=== PATIENT | female | born 1970 | race African-American/Black ===

== ENCOUNTER 2016-08-13 16:42 | Emergency (ER) | payer OTHER ==
[~2016-08-13] VITALS: Ht 149.9 cm; Wt 60.8 kg
[~2016-08-13 16:42] MED LIST: ASPI-498 PO; HYDR7.5T PO
[2016-08-13 17:24] LABS: Basophils # (auto) 0 uL; Basophils % (auto) 0.2 % (0.0-2.0); Eosinophils # (auto) 0 uL; Eosinophils % (auto) 0.6 % (0.0-7.0); Hematocrit 40.9 % (36.0-46.0); Hemoglobin 13.4 g/dL (12.2-16.2); Lymphocytes # (auto) 2.7 uL; Lymphocytes % (auto) 45.7 % (10.0-50.0); Mean Corpuscular Hemoglobin 28.8 pg (28.0-32.0); Mean Corpuscular Hgb Conc. 32.7 g/dL (32.0-36.0); Mean Corpuscular Volume 87.9 fL (80.0-100.0); Mean Platelet Volume 9.5 fL (7.4-10.4); Monocytes # (auto) 0.2 uL; Monocytes % (auto) 4.2 % (0.0-12.0); Neutrophils # (auto) 2.9 uL; Neutrophils % (auto) 49.3 % (37.0-80.0); Platelet Count (auto) 225 10^3/uL (140-450); Red Cell Distribution Width 13.2 % (11.6-16.0); White Blood Cell 5.8 10^3/uL (4.4-10.8)
[2016-08-13 17:36] LABS: Albumin 4.1 g/dL (3.4-5.0); Alkaline Phosphatase 111 U/L (45-117); Anion Gap 9 (5-15); Aspartate Aminotransferase 11 U/L (15-37); BUN/Creatinine Ratio 9.5; Bilirubin, Total 0.3 mg/dL (0.2-1.0); Blood Urea Nitrogen 7 mg/dL (7-18); Calcium 9.2 mg/dL (8.5-10.1); Carbon Dioxide 31 mmol/L (21-32); Chloride 105 mmol/L (98-107); GFR African American 110 mL/min; GFR Non-African American 91 mL/min; Glucose 109 mg/dL (74-106); Magnesium 2.3 mg/dL (1.6-2.6); Potassium 3.4 mmol/L (3.5-5.1); Sodium 145 mmol/L (136-145); Total Protein 7.5 g/dL (6.4-8.2)
[2016-08-13 17:58] LABS: INR 1.02 (0.9-1.15); Partial Thromboplastin Time 28.2 sec (22.64-33.71)
[2016-08-14] MEDS ORDERED: ONDANSETRON HCL 4 MG/2 ML VIAL IV ONE (04:45)
[2016-08-14] MEDS ORDERED: MORPHINE SULF INJ 2 MG/ML SYRINGE 1ML IV ONE ×2 (04:45→06:30)
[2016-08-14 08:55] VITALS: BP 116/69
== END 2016-08-14 08:26 | disposition home or self-care (01) ==
LOC: ER 16:48
DX: R07.89 Other chest pain (principal); J06.9 Acute upper respiratory infection, unspecified; J45.909 Unspecified asthma, uncomplicated; I10 Essential (primary) hypertension; E78.5 Hyperlipidemia, unspecified; Z90.710 Acquired absence of both cervix and uterus; Z98.51 Tubal ligation status
CPT/HCPCS: 36415; 71020; 80053; 83735; 84443; 84484; 85025; 85610; 85730; 93005; 96374; 96375; 96376; 99285; J2270; J2405

== ENCOUNTER → 2017-02-01 | Outpatient (CLI) | payer OTHER ==
[2017-02-01 08:59] LABS: Basophils # (auto) 0 uL; Basophils % (auto) 0.5 % (0.0-2.0); Eosinophils # (auto) 0 uL; Hematocrit 38.4 % (36.0-46.0); Hemoglobin 12.8 g/dL (12.2-16.2); Lymphocytes # (auto) 1.8 uL; Lymphocytes % (auto) 45.8 % (10.0-50.0); Mean Corpuscular Hemoglobin 29.9 pg (28.0-32.0); Mean Corpuscular Hgb Conc. 33.2 g/dL (32.0-36.0); Mean Platelet Volume 9.4 fL (6.9-10.8); Monocytes # (auto) 0.2 uL; Monocytes % (auto) 5.7 % (0.0-12.0); Neutrophils # (auto) 1.8 uL; Nucleated Red Blood Cells % 0.1 %; Platelet Count (auto) 165 10^3/uL (140-450); Red Cell Distribution Width 13.2 % (11.8-14.3); White Blood Cell 3.8 10^3/uL (4.4-10.8)
[2017-02-01 09:14] LABS: Albumin 4.1 g/dL (3.4-5.0); BUN/Creatinine Ratio 19.4; Bilirubin, Total 0.4 mg/dL (0.2-1.0); Calcium 8.9 mg/dL (8.5-10.1); Potassium 3.4 mmol/L (3.5-5.1); Total Protein 7.1 g/dL (6.4-8.2); Uric Acid 3.5 mg/dL (2.6-6.0)
[2017-02-02 08:07] LABS: Rheumatoid Arthritis Factor <10.0 IU/mL (0.0-13.9)
== END | disposition home or self-care (01) ==
LOC: LAB 08:08
DX: I10 Essential (primary) hypertension (principal); M45.0 Ankylosing spondylitis of multiple sites in spine; M32.10 Systemic lupus erythematosus, organ or system involvement unspecified; M10.00 Idiopathic gout, unspecified site; M06.9 Rheumatoid arthritis, unspecified; M25.50 Pain in unspecified joint; D64.9 Anemia, unspecified; Z79.899 Other long term (current) drug therapy
CPT/HCPCS: 36415; 80053; 84550; 85025; 85652; 86038; 86141; 86200; 86431; 86812

== ENCOUNTER → 2017-07-27 | Outpatient (CLI) | payer OTHER ==
[2017-07-27 14:33] LABS: Basophils # (auto) 0 uL; Basophils % (auto) 0.5 % (0.0-2.0); Eosinophils # (auto) 0 uL; Eosinophils % (auto) 0.6 % (0.0-7.0); Hematocrit 39.6 % (36.0-46.0); Hemoglobin 13.8 g/dL (12.2-16.2); Lymphocytes # (auto) 2.3 uL; Lymphocytes % (auto) 54.4 % (10.0-50.0); Mean Corpuscular Hemoglobin 30.6 pg (28.0-32.0); Mean Corpuscular Hgb Conc. 34.8 g/dL (32.0-36.0); Mean Corpuscular Volume 87.8 fL (80.0-100.0); Monocytes # (auto) 0.2 uL; Monocytes % (auto) 4.6 % (0.0-12.0); Neutrophils # (auto) 1.7 uL; Neutrophils % (auto) 39.9 % (37.0-80.0); Nucleated Red Blood Cells % 0.2 %; Platelet Count (auto) 185 10^3/uL (140-450); Red Cell Distribution Width 12.9 % (11.8-14.3); White Blood Cell 4.3 10^3/uL (4.4-10.8)
[2017-07-27 14:40] LABS: Protein, Urine 11.8 mg/dL (0.0-11.9)
[2017-07-27 14:50] LABS: Urine Bacteria FEW /hpf (None Seen); Urine Blood Negative /uL (Negative); Urine WBC 2 /hpf (0 - 5)
[2017-07-27 15:18] LABS: BUN/Creatinine Ratio 17.9; Bilirubin, Total 0.5 mg/dL (0.2-1.0); CRP High Sensitivity 0.05 mg/dL (< 0.3); Calcium 8.8 mg/dL (8.5-10.1); Potassium 3.6 mmol/L (3.5-5.1); Total Protein 7.3 g/dL (6.4-8.2)
[2017-07-27 15:20] LABS: Follicle Stimulating Hormone 147.31 IU/L (SEE BELOW); Free T4 (Free Thyroxine) 1.04 ng/dL (0.89-1.76)
== END | disposition home or self-care (01) ==
LOC: LAB 13:54
PROVIDERS: ATTEND Internal Medicine
DX: M06.9 Rheumatoid arthritis, unspecified (principal); M79.1 Myalgia; N95.1 Menopausal and female climacteric states; R13.10 Dysphagia, unspecified
CPT/HCPCS: 36415; 80053; 80061; 81001; 82550; 82570; 83001; 84156; 84439; 84443; 85025; 85652; 86141; 86235

== ENCOUNTER 2018-10-21 12:51 | Emergency (ER) | payer OTHER ==
[~2018-10-21] VITALS: Ht 152.4 cm; Wt 56.7 kg
[2018-10-21 14:09] LABS: Basophils # (auto) 0 uL; Basophils % (auto) 0.3 % (0.0-2.0); Eosinophils # (auto) 0 uL; Eosinophils % (auto) 0.1 % (0.0-7.0); Hematocrit 42.4 % (36.0-46.0); Hemoglobin 14.3 g/dL (12.2-16.2); Lymphocytes # (auto) 0.6 uL; Lymphocytes % (auto) 8.4 % (10.0-50.0); Mean Corpuscular Hgb Conc. 33.7 g/dL (32.0-36.0); Monocytes # (auto) 0.2 uL; Neutrophils # (auto) 6.4 uL; Neutrophils % (auto) 88.2 % (37.0-80.0); Nucleated Red Blood Cells % 0.1 %; Platelet Count (auto) 177 10^3/uL (140-450); Red Blood Cells 4.76 10^6/uL (4.0-5.20); Red Cell Distribution Width 12.6 % (11.8-14.3); White Blood Cell 7.3 10^3/uL (4.4-10.8)
[2018-10-21 14:25] LABS: Alanine Aminotransferase 62 U/L (13-56); Albumin 4.1 g/dL (3.4-5.0); Anion Gap 4 (5-15); Blood Urea Nitrogen 11 mg/dL (7-18); Carbon Dioxide 30 mmol/L (21-32); Chloride 107 mmol/L (98-107); Glucose 95 mg/dL (74-106); Magnesium 2.2 mg/dL (1.6-2.6); Potassium 3.7 mmol/L (3.5-5.1); Sodium 141 mmol/L (136-145)
[2018-10-21 14:30] LABS: Alkaline Phosphatase 150 U/L (45-117); Aspartate Aminotransferase 32 U/L (15-37); BUN/Creatinine Ratio 12.8; Bilirubin, Total 0.6 mg/dL (0.2-1.0); GFR African American 91 mL/min; GFR Non-African American 76 mL/min; Total Protein 7.7 g/dL (6.4-8.2)
[2018-10-21] MEDS ORDERED: SODIUM CHLORIDE 0.9% 1,000 ML IVB ONE (14:54)
[2018-10-21] MEDS ORDERED: ONDANSETRON HCL 4 MG/2 ML VIAL IV ONE ×2 (15:00→17:30)
[2018-10-21 15:23] LABS: Amylase 74 U/L (25-115); Lipase 100 U/L (73-393)
[2018-10-21 15:45] LABS: INR 0.95 (0.9-1.15); Partial Thromboplastin Time 27.4 sec (23.64-32.05)
[2018-10-21 17:12] VITALS: BP 100/60
[2018-10-21] MEDS ORDERED: MORPHINE SULF INJ 2 MG/ML SYRINGE 1ML ONE (17:21)
[2018-10-21] MEDS ORDERED: MORPHINE SULF INJ 2 MG/ML SYRINGE 1ML IV ONE (17:30)
[2018-10-21 17:45] LABS: Urine Bacteria NONE SEEN /hpf (None Seen); Urine Blood Negative /uL (Negative); Urine WBC 5 /hpf (0 - 5)
[2018-10-21] MEDS ORDERED: ONDANSETRON HCL 4 MG/2 ML VIAL IV PRN (18:45)
[2018-10-21] MEDS ORDERED: SODIUM CHLORIDE 0.9% 1,000 ML IV SCH (18:45)
[2018-10-21] MEDS ORDERED: NITROGLYCERIN 0.4 MG SL TAB SL PRN (18:45)
[2018-10-21] MEDS ORDERED: HYDROcodone-ACET 5/325MG TAB PO PRN (18:45)
[2018-10-21] MEDS ORDERED: ACETAMINOPHEN 500 MG TAB PO PRN (18:45)
[2018-10-21] MEDS ORDERED: MORPHINE SULF INJ 2 MG/ML SYRINGE 1ML IV PRN ×2 (18:45)
[2018-10-21 19:12] LABS: CRP High Sensitivity 0.89 mg/dL (< 0.3)
[2018-10-21 19:14] LABS: Alcohol, Urine < 3.0 mg/dL (0-5); Amphetamine Screen, Urine NEGATIVE (NEGATIVE); Barbiturate Scree,Urine NEGATIVE (NEGATIVE); Benzodiazephine Screen, Urine NEGATIVE (NEGATIVE); Cannabinoid Screen, Urine NEGATIVE (NEGATIVE); Cocaine Screen, Urine NEGATIVE (NEGATIVE); Opiate Scree,Urine NEGATIVE (NEGATIVE); Phencyclidine Screen, Urine NEGATIVE (NEGATIVE)
[2018-10-21] MEDS ORDERED: GABAPENTIN 100 MG CAP PO SCH (22:00)
[2018-10-21] MEDS ORDERED: AMITRIPTYLINE HCL 25 MG TAB PO SCH (22:00)
[2018-10-22] MEDS ORDERED: FAMOTIDINE 20 MG TAB PO SCH (10:00)
== END 2018-10-21 18:57 | disposition left against medical advice (07) ==
LOC: ER 12:55
DX: R11.2 Nausea with vomiting, unspecified (principal); R10.84 Generalized abdominal pain; R20.0 Anesthesia of skin; R20.2 Paresthesia of skin; R79.89 Other specified abnormal findings of blood chemistry; J45.909 Unspecified asthma, uncomplicated; E78.5 Hyperlipidemia, unspecified; I10 Essential (primary) hypertension; Z98.51 Tubal ligation status; Z79.82 Long term (current) use of aspirin; Z79.899 Other long term (current) drug therapy; Z86.73 Personal history of transient ischemic attack (TIA), and cerebral infarction without residual deficits; Z90.710 Acquired absence of both cervix and uterus; Z53.29 Procedure and treatment not carried out because of patient's decision for other reasons
CPT/HCPCS: 36415; 70450; 71045; 74176; 80053; 80307; 81001; 82150; 83615; 83690; 83735; 84443; 84484; 85025; 85610; 85652; 85730; 86141; 93005; 94761; 96361; 96374; 96375; 96376; 99284; J2270; J2405; J7030